=== PATIENT | female | born 1955 | race Caucasian/White ===

== ENCOUNTER → 2016-08-11 | Outpatient (CLI) | payer BC ==
--- NOTE | 2016-08-12 14:41 | MAMMOGRAPHY REPORT ---
BILATERAL DIGITAL SCREENING MAMMOGRAM TOMOSYNTHESIS WITH CAD: 08/11/2016 CLINICAL HISTORY: Routine screening. Patient has no complaints. TECHNIQUE: Bilateral breast tomosynthesis in addition to standard 2D mammography was performed. Curr ent study was also evaluated with a Computer Aided Detection (CAD) system. COMPARISON: Comparison is made to exams dated: 08/09/2015 mammogram, 08/08/2014 mammogram, 06/09/2013 ma mmogram - [facility], 05/26/2010 mammogram - [facility], 08/12/2007, and 08/10/2006. BREAST COMPOSITION: There are scattered areas of fibroglandular density in both breasts. FINDINGS: A linear scar marker overlies the upper inner quadrant of the left breast and the inferio r right breast. A 14 x 17 mm mass in the upper outer posterior left breast measures smaller in size comparing to the most remote 08/12/2007 mammogram on the MLO view, and slightly smaller comparing t o the 2008 mammogram, therefore most likely benign. There are scattered round and punctate benign-a ppearing microcalcifications bilaterally. There is possible architectural distortion in the left breast, along the posterior nipple line on th e CC view (6.7 cm distal to the nipple). This is not clearly seen on the MLO view or corresponding, synthesis images. Additional spot compression tomosynthesis views with a small paddle and possible ultrasound are recommended. No other suspicious mass, architectural distortion or cluster of suspicious microcalcifications is s een bilaterally. IMPRESSION: ACR BI-RADS CATEGORY 0: INCOMPLETE EVALUATION: NEED ADDITIONAL IMAGING EVALUATION The possible architectural distortion in the left breast needs additional evaluation. The patient will be called to schedule an appointment. Approximately 10% of breast cancers are not detected with mammography. A negative mammographic repor t should not delay biopsy if a clinically suggestive mass is present. Neli Bermudez M.D. ay/:08/11/2016 17:07:26 Barytes Grinder: Kelsy ALLEN)(Bro), [facility] letter sent: Addl Imaging 0 BI-RADS Code: ACR BI-RADS Category 0: Incomplete Evaluation: Need Additional Imaging Evaluation
== END | disposition home or self-care (01) ==
LOC: C.MAMM 10:55
PROVIDERS: ATTEND Family Medicine
DX: Z12.31 Encounter for screening mammogram for malignant neoplasm of breast (principal); R92.8 Other abnormal and inconclusive findings on diagnostic imaging of breast

== ENCOUNTER → 2016-08-24 | Outpatient (CLI) | payer BC ==
--- NOTE | 2016-08-24 15:16 | MAMMOGRAPHY REPORT ---
UNILATERAL LEFT DIGITAL DIAGNOSTIC MAMMOGRAM TOMOSYNTHESIS AND TARGETED LEFT ULTRASOUND: 08/24/2016 CLINICAL HISTORY: 60-year-old woman called back from screening mammography for question of [employer] architect ural distortion in the middle one third of the left breast, along the posterior nipple line on the C C view. History of prior left breast surgery. TECHNIQUE: Spot compression left CC and MLO 2-D digital and tomosynthesis images were obtained. COMPARISON: Comparison is made to exams dated: 08/11/2016 mammogram, 08/09/2015 mammogram, 08/08/2014 helen mogram, 06/09/2013 mammogram - [facility], 05/26/2010 mammogram, and 02/14/2009 mammo gram - [facility]. BREAST COMPOSITION: There are scattered areas of fibroglandular density in the left breast. FINDINGS: There are scattered round benign-appearing microcalcifications throughout the left breast. A stable lobulated 15 mm mass in the upper outer posterior left breast is unchanged in size and ap pearance dating back to at least 08/12/2007, therefore likely benign. The questionable architectura l distortion along the posterior nipple line on the left CC view nearly completely effaces with the additional spot compression tomosynthesis view in the same location. No corresponding abnormality, focal architectural distortion or new suspicious mass is seen on the spot compression MLO view inclu ding tomosynthesis images. Further evaluation with targeted ultrasound was performed. Real-time high resolution ultrasound was performed in the 11:00 through 1:00, retroareolar and 5:00 through 7:00 axes of the left breast. Normal fibroglandular tissue is seen without a suspicious teri id or cystic mass. No subtle architectural distortion is identified. IMPRESSION: ACR-BI-RADS CATEGORY 3: PROBABLY BENIGN, TARGETED ULTRASOUND ACR-BI-RADS CATEGORY 3: CT OBABLY BENIGN There is near complete effacement of the questionable architectural distortion in the left breast, a long the posterior nipple line on the CC view, and no suspicious sonographic correlate was identifie d. Although this most likely represented normal overlapping fibrolinear markings, a short interval follow-up diagnostic left mammogram and possible repeat ultrasound is recommended to ensure stabilit y in 6 months. (The patient will be out of town until the 78 month timeframe, and she will return to our office as soon as she is back in town.) These results and recommendations were discussed with the patient at the time of the exam. She tent atively scheduled a follow-up appointment prior to leaving the department. Approximately 10% of breast cancers are not detected with mammography. A negative mammographic repor t should not delay biopsy if a clinically suggestive mass is present. Neli Bermudez M.D. ay/:08/24/2016 12:08:05 Senior Auditor: Kelsy NEAL(Joyce)(Bro), [facility] letter sent: Follow Up Recommended 3 BI-RADS Code: ACR-BI-RADS Category 3: Probably Benign Ultrasound BI-RADS: ACR-BI-RADS Category 3: P robably Benign
== END | disposition home or self-care (01) ==
LOC: C.MAMM 11:07
PROVIDERS: ATTEND Family Medicine
DX: N64.9 Disorder of breast, unspecified (principal)

== ENCOUNTER → 2017-04-26 | Outpatient (CLI) | payer BC ==
--- NOTE | 2017-04-26 15:09 | MAMMOGRAPHY REPORT ---
UNILATERAL LEFT DIGITAL DIAGNOSTIC MAMMOGRAM TOMOSYNTHESIS WITH CAD AND TARGETED LEFT ULTRASOUND: CLINICAL HISTORY: 61-year-old woman presents for follow-up in the left breast for a possible area of architectural distortion along the posterior nipple line on the CC view. The distortion was felt eff aced with additional spot compression tomosynthesis images and no suspicious sonographic correlate wa s identified. TECHNIQUE: Left breast CC and MLO 2-D and tomosynthesis images, spot magnification left XCCL and ML a nd spot compression tomosynthesis left CC and MLO views were obtained. Current study was also evalua leela with a Computer Aided Detection (CAD) system. COMPARISON: Comparison is made to exams dated: 08/24/2016 ultrasound, 08/24/2016 mammogram, 08/11/2016 m ammogram, 08/09/2015 mammogram, 08/08/2014 mammogram, and 06/09/2013 mammogram - [facility]. BREAST COMPOSITION: There are scattered areas of fibroglandular density in the left breast. FINDINGS: The full field tomosynthesis images of the left breast redemonstrate a questionable area of architectural distortion along the posterior nipple line on the CC view (tomosynthesis slice 44/79), and therefore additional spot compression tomosynthesis views were obtained. Again seen is a possib le small area of distortion in the middle one third of the left breast 6 cm distal to the nipple dian g the posterior nipple line on the CC view (spot compression CC tomosynthesis slice 38/78). This is not definitely identified on the standard left MLO view or the spot compression tomosynthesis left ML O view. Further evaluation with ultrasound was performed. There is a lobulated mass in the upper outer posterior left breast with a few associated calcificatio ns, for which further evaluation with spot magnification views were obtained. On the spot magnificat ion views, there are loosely grouped round and punctate microcalcifications projecting over the mass. It currently measures 13 x 14 x 17 mm. When comparing back to all available prior mammograms this mass actually appears decreased in size as it measured 19 x 16 mm on the 2008 mammograms. Although t he microcalcifications are new, they could indicate a degenerating fibroadenoma and are probably андрей gn. Further evaluation with ultrasound was also performed of this mass. No other suspicious masses, suspicious grouped calcifications or other areas of asymmetry or architectural distortion are identi fied. Targeted ultrasound was performed in the left breast with particular attention to the 12:00, retroare olar and 6:00 axes to assess for the possible area of architectural distortion, and also in the upper outer quadrant to assess for the lobulated mass with calcification. Throughout the 12:00, retroareo lar and 6:00 axes, sonographically normal tissue is seen without a discrete solid or cystic mass. No sonographic correlate for the distortion. In the 1:00 left breast, 9 cm from the nipple, there is a parallel hypoechoic lobulated solid mass measuring approximately 12 x 7 x 10 mm, this is likely unde r measured on ultrasound. This corresponds to the mammographic mass and most likely represents a berenice ign fibroadenoma, particularly given the suspected decreased in size when comparing to prior mammogra ms there are new loosely grouped round and punctate microcalcifications associated with a benign-appe aring mass in the upper outer posterior left breast. IMPRESSION: ACR BI-RADS CATEGORY 4: SUSPICIOUS, TARGETED ULTRASOUND ACR BI-RADS CATEGORY 4: SUSPICIO US 1. There is again questionable/subtle area of architectural distortion in the middle one third of th e left breast along the posterior nipple line on the CC view, without sonographic correlate identifie d. Given its persistence, definitive characterization with a stereotactic tomosynthesis guided biops y is recommended. 2. There are new round and punctate loosely grouped microcalcifications associated with a benign-camryn earing mass in the upper outer posterior left breast. 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 However given that the calc ifications are new, pending benign pathology results from the stereotactic tomosynthesis guided biops y, a short interval follow-up left diagnostic mammogram including spot magnification views is recomme nded to ensure stability and/or coarsening of the calcifications. Annual right mammography will also be due at that time. These results and recommendations were discussed with the patient at the time of the exam. She tenta tively scheduled the left breast biopsy and six-month follow-up appointment prior to leaving our depa rtment. Approximately 10% of breast cancers are not detected with mammography. A negative mammographic report should not delay biopsy if a clinically suggestive mass is present. Neli Bermudez M.D. ay/:04/26/2017 12:47:46 Motel Operator: Jeanie Tubbs, [facility] letter sent: Abnormal 4/5 BI-RADS Code: ACR BI-RADS Category 4: Suspicious Ultrasound BI-RADS: ACR BI-RADS Category 4: Suspici ous
== END | disposition home or self-care (01) ==
LOC: C.MAMM 10:20
PROVIDERS: ATTEND Family Medicine
DX: R92.8 Other abnormal and inconclusive findings on diagnostic imaging of breast (principal); R92.0 Mammographic microcalcification found on diagnostic imaging of breast

== ENCOUNTER → 2017-04-28 | Outpatient (CLI) | payer BC ==
--- NOTE | 2017-04-28 14:03 | Discharge Instructions ---
Discharge Instructions Procedure Procedure Date: Apr 28, 2017. Reason for visit: Left Breast Distortion. Discharge Discharge Date: Apr 28, 2017. Discharge Diagnosis: post left breast stereotactic tomosynthesis guided biopsy Instructions Activity Recommendations: Additional Limitations (see below) Return to School/Work: no limitations Recommended Home Diet: No Limitations Provider Instructions: ACTIVITY RECOMMENDATIONS: * No lifting, pushing, pulling or exercising the affected side for three days. RETURN TO SCHOOL/WORK: * You may return to work/school after the procedure, but do not perform any strenuous activities for 24 to 48 hours. MEDICATIONS: * Tylenol (two 325 mg) every four to six hours if needed for mild pain (if not allergic to Tylenol). DIET: * Resume previous diet. SPECIAL CARE INSTRUCTIONS: * Keep biopsy site dry for 24 hours. May shower after 24 hours, but do not soak (bathe) incision. * May remove Tegaderm (plastic patch) tomorrow AFTER showering. * Leave the steri-strips on for one week. Allow the steri-strips to fall off by themselves. If not off after one week, you may remove them. You may place a Bandaid crosswise over the strips, if desired. * Apply ice 10 minutes on and 10 minutes off as needed. * Wear a bra at bedtime to sleep more comfortably for 2-3 days. * Your referring physician should have the results after approximately 5 to 7 business days. * Call for unusual bleeding, fever, drainage, etc or if you have any questions call [phone] during normal business hours or after hours call Dr Bermudez, . FOLLOW UP VISIT: Follow-up with Referring Physician as scheduled. Allergies Coded Allergies: No Known Allergies (Verified Allergy, Unknown, 06/22/02) Uncoded Allergies: N (Allergy, Unknown, 06/22/02) NFA (Allergy, Unknown, 06/22/02) NKDA (Allergy, Unknown, 06/22/02) NO (Allergy, Unknown, 06/22/02) Sammi Barba Recommendations: Call your doctor if: * Temperature above 101 degrees * Pain not relieved by pain medicine ordered * There is increased drainage or redness from any incision * You have any unanswered questions or concerns. Your Doctors Instructions noted above were prepared by provider Neli Bermudez. Patient Signature Section: Patient Instructions Signature Page Trinidad Barcenas Patient (or Guardian) Signature/Date: I have read and understand the instructions given to me by my caregivers. Caregiver/RN/Doctor Signature/Date: The above-named patient and/or guardian has received patient instructions on this date. + Original Patient Signature Page (only) stays with chart. Please make copy for patient.
--- NOTE | 2017-04-29 14:34 | MAMMOGRAPHY REPORT ---
STEREOTACTIC GUIDED BIOPSY LEFT BREAST: 04/28/2017 CLINICAL HISTORY: 61-year-old woman presents for stereotactic tomosynthesis guided biopsy of a subtle area of architectural distortion in the left breast only seen on the CC view along the posterior nip ple line in the approximate middle one third of the breast. COMPARISON: Comparison is made to exams dated: 04/26/2017 ultrasound, 04/26/2017 mammogram, 7 ultrasound, 08/24/2016 mammogram, 08/11/2016 mammogram, and 08/09/2015 mammogram - [facility]. PATIENT CONSENT: After explaining the risks, benefits and alternatives of the procedure to the patien t, informed consent was obtained both verbally and in writing. Specific risks include: Bleeding, inf ection, puncture of adjacent structure, pain, nontarget biopsy, sampling error, metal allergy and med ication reaction. PROCEDURE DESCRIPTION: A time-out was performed and the left breast was confirmed as the site of biop sy. The patient was placed prone on the stereotactic biopsy table and the breast was placed in CC fro m above compression. A scrap iron cutter tomosynthesis image was obtained that demonstrated a probable very subtl e area of distortion thought to correlate with the distortion seen on the diagnostic mammograms perfo rmed 04/26/2017. Therefore this area of distortion was targeted utilizing the coordinates obtained b y the computer. The skin was prepped with Betadine. 1% Lidocaine with and without epinipherine was a dministered as local anesthesia. A small skin incision was made. Through the incision, the needle wa s inserted to the depth determined by the computer. 8 samples were obtained using a [email or web address] vacuum-assisted biopsy device. A metallic marker was placed at the biopsy site. There was no immed iate complication. Hemostasis was achieved after several minutes of manual compression. The samples were sent to pathology in an appropriately labeled container. Postprocedure CC and ML views of the left breast were obtained. A new dumbbell-shaped metallic biops y marker clip is seen in the 1:00 middle one third of the left breast, with a small air pocket at the biopsy site and no significant postbiopsy hematoma. However, the biopsy marker clip is located 3 cm lateral to the expected prior location of the distortion although it is not well-seen on the current tomosynthesis view. Given that it was a subtle finding initially, will assess pathology results bef ore further recommendations are made regarding follow-up. It should be noted that a six-month follow -up was previously recommended for a mass with new calcification in the upper outer far posterior lef t breast, thought to represent a probable degenerating fibroadenoma. IMPRESSION: STEREOTACTIC GUIDED BIOPSY Status post stereotactic tomosynthesis guided biopsy of a subtle area of architectural distortion in the middle one third of the left breast. The biopsy marker clip is located approximately 3 cm latera l to the expected prior location of the distortion, which is no longer clearly seen. Given the subtl e nature of the initial distortion will evaluate pathology results before further recommendations are made regarding follow-up. The patient is already scheduled for a six-month follow-up left diagnosti c mammogram with spot magnification views to reassess a mass with new associated calcification in the upper outer posterior left breast. Will consider follow-up tomosynthesis imaging versus repeat biop sy versus MRI. The patient will receive written notification of the results. Neli Bermudez M.D. ay/:04/28/2017 16:42:03 Welder Oxyhydrogen: Jeanie Tubbs, [facility]
--- NOTE | 2017-04-29 14:34 | MAMMOGRAPHY REPORT ---
UNILATERAL LEFT DIGITAL DIAGNOSTIC MAMMOGRAM TOMOSYNTHESIS: 04/28/2017 CLINICAL HISTORY: Status post stereotactic tomosynthesis guided biopsy of a small subtle area of arch itectural distortion in the middle one third of the left breast, along the posterior nipple line on t he CC view. Please refer to the report from left breast stereotactic tomosynthesis guided biopsy performed at the same time for full detail. IMPRESSION: POST PROCEDURE IMAGING FOR MARKER PLACEMENT Please refer to the report from left breast stereotactic tomosynthesis guided biopsy performed at the same time for full detail. Approximately 10% of breast cancers are not detected with mammography. A negative mammographic report should not delay biopsy if a clinically suggestive mass is present. Neli Bermudez M.D. ay/:04/28/2017 13:59:08 Invertebrate Paleontologist: Jeanie Tubbs, [facility] BI-RADS Code: Post Procedure Imaging For Marker Placement
== END | disposition home or self-care (01) ==
LOC: C.MAMM 13:10
PROVIDERS: ATTEND Family Medicine
DX: R92.8 Other abnormal and inconclusive findings on diagnostic imaging of breast (principal); N64.89 Other specified disorders of breast

== ENCOUNTER → 2017-06-21 | Outpatient (CLI) | payer OTHER ==
--- NOTE | 2017-06-21 14:54 | DIAGNOSTIC IMAGING REPORT ---
THYROID ULTRASOUND HISTORY: THYROID NODULE COMPARISON: Thyroid ultrasound 06/19/2015. FINDINGS: Right lobe: 5.5 x 2.7 x 2.5 cm. Dominant solid nodule measures 3.0 x 2.7 x 2.4 cm. This previously measured 2.7 x 2.3 x 1.9 cm. Left lobe: 3.1 x 1.2 x 1.2 cm. No nodules. Isthmus: 2 mm. No nodules. IMPRESSION: Increase in size in the dominant nodule within the right thyroid lobe measuring 3.0 x 2.7 x 2.4 cm. Recommend ultrasound-guided fine-needle aspiration for further evaluation. Electronically signed by: Nathan Kiran M.D. 06/21/2017 2:53 PM Dictated Date/Time: 06/21/2017 2:48 PM
== END | disposition home or self-care (01) ==
LOC: C.ULTR 13:46
PROVIDERS: ATTEND Family Medicine
DX: E04.1 Nontoxic single thyroid nodule (principal)